=== PATIENT | male | born 1980 | race American Indian/Alaskan Native ===

== ENCOUNTER 2017-12-25 19:19 | Observation (INO) | payer BC ==
[2017-12-25] MEDS ORDERED: Sodium Chloride 0.9% 1,000 ML IV STA ×2 (20:01→20:14)
--- NOTE | 2017-12-25 20:04 | ED PDOC ---
HPI: General Adult Time Seen by Provider: 12/25/17 19:41 Chief Complaint (Nursing): GI Problem Chief Complaint (Provider): GI Problem History Per: Patient History/Exam Limitations: no limitations Onset/Duration Of Symptoms: Days Current Symptoms Are (Timing): Still Present Additional Complaint(s): 37 year old male presents to the emergency department with a complaint of diarrhea x1 week. Associated with fever, chills, nausea, abdominal pain, weakness, malaise and vomiting x1 day. Reports vomiting and diarrhea episodes were non bloody. States he returned from [place] 1 week ago and had diarrhea since and uses the bathroom every 30 minutes for the last 2-3 days. Patient saw market risk specialist who started him on proton-pump inhibitor (PPI) and Imodium without any improvement. Denies blood in vomit or diarrhea episodes or any further medical complaints. Past Medical History Reviewed: Historical Data, Nursing Documentation, Vital Signs Vital Signs: Last Vital Signs Temp 99.3 F 12/25/17 22:54 Pulse 93 H 12/25/17 22:54 Resp 16 12/25/17 22:54 BP 101/49 L 12/25/17 22:54 Pulse Ox 97 12/26/17 00:06 - Medical History PMH: No Chronic Diseases - Surgical History Surgical History: No Surg Hx - Family History Family History: States: Unknown Family Hx - Social History Current smoker - smoking cessation education provided: No Alcohol: None Drugs: Denies - Allergies Allergies/Adverse Reactions: Allergies Allergy/AdvReac Type Severity Reaction Status Date / Time hops Allergy RASH Verified 12/25/17 19:31 lactose Allergy DIARRHEA Verified 12/25/17 19:31 orange Allergy RASH Verified 12/25/17 19:31 wheat Allergy RASH Verified 12/25/17 19:31 Review of Systems ROS Statement: Except As Marked, All Systems Reviewed And Found Negative (As per HPI, otherwise negative) Constitutional: Positive for: Fever, Chills, Weakness, Malaise Gastrointestinal: Positive for: Nausea, Vomiting, Abdominal Pain, Diarrhea. Negative for: Hematochezia, Hematemesis Physical Exam - Reviewed Nursing Documentation Reviewed: Yes Vital Signs Reviewed: Yes - Physical Exam Appears: Positive for: Uncomfortable (febrile) Head Exam: Positive for: NORMAL INSPECTION Skin: Positive for: Normal Color, Warm, Dry Cardiovascular/Chest: Positive for: Tachycardia (regular rhythm). Negative for : Murmur Respiratory: Positive for: Normal Breath Sounds. Negative for: Wheezing, Respiratory Distress Gastrointestinal/Abdominal: Positive for: Soft, Tenderness (Diffuse). Negative for: Normal Exam Extremity: Positive for: Normal ROM. Negative for: Pedal Edema Neurologic/Psych: Positive for: Alert, Oriented (x3) - Laboratory Results Result Diagrams: 12/25/17 21:03 12/25/17 21:03 - ECG O2 Sat by Pulse Oximetry: 97 (RA) Pulse Ox Interpretation: Normal Medical Decision Making Medical Decision Making: Time: 1999 Initial impression: Acute diarrheal illness, fever, and chills in setting of overseas travel Initial plan: EKG CMP Lact Acid, Plasma Urine DIP CBC w. diff Tylenol 975 mg PO Sodium Chloride 1L IV Blood and Stool Culture Ova and Parasite Fecal Leukocytes Influenza A B Bentyl 20 mg PO Abd & Pelvis IV Contrast CT Reevaluation Time: 2114 --Occult Blood, stool Time: 23:42 CT ABDOMEN AND PELVIS FINDINGS: Lung bases: There is minimal bibasilar atelectasis. ABDOMEN: Liver: Unremarkable. No mass. Gallbladder and bile ducts: Unremarkable. No calcified stones. No ductal dilation. Pancreas: Unremarkable. No mass. No ductal dilation. Spleen: Unremarkable. No splenomegaly. Adrenals: Unremarkable. No mass. Kidneys and ureters: Unremarkable. No solid mass. No hydronephrosis. Stomach and bowel: No obstruction. The colon is diffusely thickwalled most prominent from the splenic flexure to the rectum consistent with acute colitis. PELVIS: Appendix: No findings to suggest acute appendicitis. Normal appendix. Bladder: Unremarkable. No mass. Reproductive: Unremarkable as visualized. ABDOMEN and PELVIS: Intraperitoneal space: Unremarkable. No free air. No significant fluid collection. Bones/joints: No acute fracture. No dislocation. Soft tissues: Unremarkable. Vasculature: Unremarkable. No abdominal aortic aneurysm. Lymph nodes: Unremarkable. No enlarged lymph nodes. IMPRESSION: Acute colitis. Time: 23:57 --Cipro 400ml/200ml DSW IV --Flagyl 500mg/100ml NS IVPB --2x KCl IV run Arrangements made with Dr. Wakefield for admission for acute colitis, hyperkalemia, and dehydration. Scribe Attestation: Documented by Joan Allison and Dereck Robles, acting as scribes for Carlitos Solorzano MD. Provider Scribe Attestation: All medical record entries made by the Scribe were at my direction and personally dictated by me. I have reviewed the chart and agree that the record accurately reflects my personal performance of the history, physical exam, medical decision making, and the department course for this patient. I have also personally directed, reviewed, and agree with the discharge instructions and disposition. Disposition - Clinical Impression Clinical Impression: Acute colitis, Hyperkalemia, Dehydration - Patient ED Disposition Is Patient to be Admitted: Yes - Disposition Disposition Time: 00:01 Condition: FAIR Forms: [place] (Yoruba) - Pt Status Changed To: Hospital Disposition Of: Inpatient - Admit Certification Admit to Inpatient:: After my assessment, the patient will require hospitalization for at least two midnights. This is because of the severity of symptoms shown, intensity of services needed, and/or the medical risk in this patient being treated as an outpatient.
[2017-12-25 21:31] LABS: ALB/GLOB RATIO 1.2 (1.0-2.1); ALBUMIN 3.8 g/dL (3.5-5.0); ALT/SGPT 38 U/L (21-72); AST/SGOT 32 U/L (17-59); BLOOD UREA NITROGEN 12 mg/dl (9-20); CALCIUM 8.9 mg/dL (8.4-10.2); GFR AFRICAN-AMERICAN > 60; GFR NON-AFRICAN AMERICAN > 60
[2017-12-25 21:40] LABS: BASO % 0.2 % (0.0-2.0); HEMOGLOBIN 14.1 g/dL (12.0-18.0); LYMPH % 9.3 % (20.0-40.0); MEAN CELL VOLUME 80.8 fl (80.0-94.0); MEAN CORPUSCULAR HEMOGLOBIN 29.7 pg (27.0-31.0); MEAN CORPUSCULAR HGB CONC 36.8 g/dL (33.0-37.0); MEAN PLATELET VOLUME 7.5 fl (7.2-11.7); MONO % 19.7 % (0.0-10.0); NEUT # 7.2 K/uL (1.8-7.0); NEUT % 70.8 % (50.0-75.0); NRBC % 0.1 % (0.0-0.0); PLATELET COUNT 282 K/uL (130-400); RBC 4.75 Mil/uL (4.40-5.90); RED CELL DISTRIBUTION WIDTH 13.6 % (11.5-14.5); WHITE BLOOD COUNT 10.2 K/uL (4.8-10.8)
[2017-12-25] MEDS ORDERED: Sodium Chloride 0.9% 50 ML IV ONE ×2 (22:10→22:23)
[2017-12-25] MEDS ORDERED: Iohexol 300 100 ML IJ ONE ×2 (22:10→22:23)
--- NOTE | 2017-12-25 23:43 | CT ---
EXAM: CT Abdomen and Pelvis With Intravenous Contrast CLINICAL HISTORY: 37 years old, male; Pain; Abdominal pain; Generalized; Additional info: Colitis TECHNIQUE: Axial computed tomography images of the abdomen and pelvis with intravenous contrast. All CT scans at this facility use one or more dose reduction techniques, viz.: automated exposure control; ma/kV adjustment per patient size (including targeted exams where dose is matched to indication; i.e. head); or iterative reconstruction technique. Coronal and sagittal reformatted images were created and reviewed. CONTRAST: 95 mL of [id number] administered intravenously. COMPARISON: No relevant prior studies available. FINDINGS: Lung bases: There is minimal bibasilar atelectasis. ABDOMEN: Liver: Unremarkable. No mass. Gallbladder and bile ducts: Unremarkable. No calcified stones. No ductal dilation. Pancreas: Unremarkable. No mass. No ductal dilation. Spleen: Unremarkable. No splenomegaly. Adrenals: Unremarkable. No mass. Kidneys and ureters: Unremarkable. No solid mass. No hydronephrosis. Stomach and bowel: No obstruction. The colon is diffusely thickwalled most prominent from the splenic flexure to the rectum consistent with acute colitis. PELVIS: Appendix: No findings to suggest acute appendicitis. Normal appendix. Bladder: Unremarkable. No mass. Reproductive: Unremarkable as visualized. ABDOMEN and PELVIS: Intraperitoneal space: Unremarkable. No free air. No significant fluid collection. Bones/joints: No acute fracture. No dislocation. Soft tissues: Unremarkable. Vasculature: Unremarkable. No abdominal aortic aneurysm. Lymph nodes: Unremarkable. No enlarged lymph nodes. IMPRESSION: Acute colitis.
[2017-12-25] MEDS ORDERED: Ciprofloxacin 400mg/200ml D5W 400 MG/200 ML BAG IV STA (23:57)
[2017-12-25] MEDS ORDERED: metroNIDAZOLE 500mg/100ml NS 100 ML IVPB STA (23:57)
[2017-12-26] MEDS ORDERED: metroNIDAZOLE 500mg/100ml NS 100 ML IVPB ONE (00:07)
[2017-12-26] MEDS ORDERED: Ciprofloxacin 400mg/200ml D5W 400 MG/200 ML BAG IVPB ONE (00:07)
--- NOTE | 2017-12-26 00:26 | CP.PCM.HP ---
History of Present Illness - History of Present Illness History of Present Illness: PMD: Fazal kent DO Chief Complaint: Diarrhea/ Fever The Patient was seen and examined in the ED HPI: This is a 37 years old male with hx of Lactose intolerance and GERD, who returned one week ago from a one week vacation in [place]. He comes referring Diarrhea since returning from the vacation. More than 10 non- bloody bowel movements daily. This is associated with generalized abdominal pain, fever, chills, nausea, vomits and weakness. He visited his Mechanical Engineering Advisor who started him on PPI and Imodium without improvement. 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 FH: States: Unknown Family Hx Allergies: NKDA Hops; Lactose; Oranges; wheat Mediations: Reviewed Present on Admission - Present on Admission Any Indicators Present on Admission: No History of DVT/PE: No History of Uncontrolled Diabetes: No Urinary Catheter: No Decubitus Ulcer Present: No Review of Systems - Constitutional Constitutional: Anorexia, Chills, Fatigue, Fever, Headache - EENT Eyes: Requires Corrective Lenses. absent: Floaters, Itchy Eyes, Sees Flashes Ears: absent: Decreased Hearing, Ear Discharge, Ear Pain, Tinnitus Nose/Mouth/Throat: absent: Epistaxis, Nasal Congestion - Cardiovascular Cardiovascular: absent: Chest Pain, Dyspnea, Edema - Respiratory Respiratory: Pain on Inspiration. absent: Cough, Dyspnea, Chest Congestion - Gastrointestinal Gastrointestinal: Abdominal Pain, Diarrhea, Nausea, Vomiting. absent: Constipation - Genitourinary Genitourinary: absent: Flank Pain, Urinary Frequency - Musculoskeletal Musculoskeletal: absent: Arthralgias, Back Pain, Muscle Weakness, Myalgias - Integumentary Integumentary: absent: Pruritus, Rash, Skin Ulcer, Sores, Striae, Swelling - Neurological Neurological: Dizziness, Headaches, Weakness. absent: Confusion, Focal Weakness - Psychiatric Psychiatric: absent: Anxiety, Depression, Panic Attacks - Endocrine Endocrine: absent: Palpitations, Polydipsia, Polyphagia, Polyuria - Hematologic/Lymphatic Hematologic: absent: Easy Bleeding, Easy Bruising Past Patient History - Past Medical History & Family History Past Medical History?: Yes - Past Social History Smoking Status: Never Smoked Chewing Tobacco Use: No Cigar Use: No Alcohol: Occasional Drugs: Denies Home Situation {Lives}: With Family - CARDIAC Hx Cardiac Disorders: No - PULMONARY Hx Respiratory Disorders: No - NEUROLOGICAL Hx Neurological Disorder: No - HEENT Hx HEENT Problems: No - RENAL Hx Chronic Kidney Disease: No - HEMATOLOGICAL/ONCOLOGICAL Hx Blood Disorders: No - INTEGUMENTARY Hx Dermatological Problems: No - MUSCULOSKELETAL/RHEUMATOLOGICAL Hx Musculoskeletal Disorders: No - GASTROINTESTINAL Hx Gastroesophageal Reflux: Yes - GENITOURINARY/GYNECOLOGICAL Hx Genitourinary Disorders: No - PSYCHIATRIC Hx Psychophysiologic Disorder: No - SURGICAL HISTORY Hx Surgeries: No - ANESTHESIA Hx Anesthesia: No Meds Allergies/Adverse Reactions: Allergies Allergy/AdvReac Type Severity Reaction Status Date / Time hops Allergy RASH Verified 12/25/17 19:31 lactose Allergy DIARRHEA Verified 12/25/17 19:31 orange Allergy RASH Verified 12/25/17 19:31 wheat Allergy RASH Verified 12/25/17 19:31 Physical Exam - Constitutional Appears: No Acute Distress - Head Exam Head Exam: ATRAUMATIC, NORMAL INSPECTION, NORMOCEPHALIC - Eye Exam Eye Exam: EOMI, Normal appearance Pupil Exam: NORMAL ACCOMODATION, PERRL - ENT Exam ENT Exam: Mucous Membranes Moist, Normal Exam, Normal External Ear Exam - Neck Exam Neck exam: Positive for: Full Rom, Normal Inspection. Negative for: Lymphadenopathy, Tenderness - Respiratory Exam Respiratory Exam: Clear to Auscultation Bilateral. absent: Rales, Rhonchi, Wheezes - Cardiovascular Exam Cardiovascular Exam: REGULAR RHYTHM, RRR, +S1, +S2. absent: Gallop, JVD - GI/Abdominal Exam Additional comments: Flat, soft, no guarding, mild rebound tenderness, Positive bowel sounds - Rectal Exam Rectal Exam: Deferred - Extremities Exam Extremities exam: Positive for: full ROM, normal inspection. Negative for: calf tenderness, joint swelling, pedal edema, tenderness - Back Exam Back exam: NORMAL INSPECTION. absent: CVA tenderness (L), CVA tenderness (R) - Neurological Exam Neurological exam: Alert, CN II-XII Intact, Oriented x3, Reflexes Normal - Psychiatric Exam Psychiatric exam: Normal Affect, Normal Mood - Skin Skin Exam: Dry, Intact, Normal Color, Warm Results - Vital Signs Recent Vital Signs: Last Vital Signs Temp 99.3 F 12/25/17 22:54 Pulse 93 H 12/25/17 22:54 Resp 16 12/25/17 22:54 BP 101/49 L 12/25/17 22:54 Pulse Ox 97 12/26/17 00:07 - Labs Result Diagrams: 12/25/17 21:03 12/25/17 21:03 Labs: Laboratory Results - last 24 hr 12/25/17 12/25/17 12/25/17 21:03 21:03 21:03 WBC 10.2 RBC 4.75 Hgb 14.1 Hct 38.4 MCV 80.8 MCH 29.7 MCHC 36.8 RDW 13.6 Plt Count 282 MPV 7.5 Neut % (Auto) 70.8 Lymph % (Auto) 9.3 L [place] % (Auto) 19.7 H Eos % (Auto) 0.0 Baso % (Auto) 0.2 Neut # (Auto) 7.2 H Lymph # (Auto) 1.0 [place] # (Auto) 2.0 H Eos # (Auto) 0.0 Baso # (Auto) 0.0 Sodium 138 Potassium 3.1 L Chloride 98 Carbon Dioxide 24 Anion Gap 19 BUN 12 Creatinine 1.3 Est GFR ( Amer) > 60 Est GFR (Non-Af Amer) > 60 Random Glucose 98 Lactic Acid Calcium 8.9 Total Bilirubin 1.8 H AST 32 ALT 38 Alkaline Phosphatase 55 Total Protein 7.1 Albumin 3.8 Globulin 3.3 Albumin/Globulin Ratio 1.2 Influenza Typ A,B (EIA) Negative for flu a/b 12/25/17 21:03 WBC RBC Hgb Hct MCV MCH MCHC RDW Plt Count MPV Neut % (Auto) Lymph % (Auto) [place] % (Auto) Eos % (Auto) Baso % (Auto) Neut # (Auto) Lymph # (Auto) [place] # (Auto) Eos # (Auto) Baso # (Auto) Sodium Potassium Chloride Carbon Dioxide Anion Gap BUN Creatinine Est GFR ( Amer) Est GFR (Non-Af Amer) Random Glucose Lactic Acid 0.9 Calcium Total Bilirubin AST ALT Alkaline Phosphatase Total Protein Albumin Globulin Albumin/Globulin Ratio Influenza Typ A,B (EIA) - EKG Data EKG comments: NSR 98/min - Imaging and Cardiology CT scan - abdomen Status: Report reviewed by me Additional comment: EXAM: CT Abdomen and Pelvis With Intravenous Contrast CLINICAL HISTORY: FINDINGS: Lung bases: There is minimal bibasilar atelectasis. ABDOMEN: Liver: Unremarkable. No mass. Gallbladder and bile ducts: Unremarkable. No calcified stones. No ductal dilation. Pancreas: Unremarkable. No mass. No ductal dilation. Spleen: Unremarkable. No splenomegaly. Adrenals: Unremarkable. No mass. Kidneys and ureters: Unremarkable. No solid mass. No hydronephrosis. Stomach and bowel: No obstruction. The colon is diffusely thickwalled most prominent from the splenic flexure to the rectum consistent with acute colitis. PELVIS: Appendix: No findings to suggest acute appendicitis. Normal appendix. Bladder: Unremarkable. No mass. Reproductive: Unremarkable as visualized. ABDOMEN and PELVIS: Intraperitoneal space: Unremarkable. No free air. No significant fluid collection. Bones/joints: No acute fracture. No dislocation. Soft tissues: Unremarkable. Vasculature: Unremarkable. No abdominal aortic aneurysm. Lymph nodes: Unremarkable. No enlarged lymph nodes. IMPRESSION: Acute colitis. Assessment & Plan - Assessment and Plan (Free Text) Assessment: #. Acute Colitis #. Hypokalemia Plan: 37 years old male with hx of Lactose intolerance and GERD, returned one week ago from vacation in [place]. He comes referring Diarrhea since returning from the vacation. More than 10 non- bloody bowel movements daily, associated with generalized abdominal pain, fever, chills, nausea, vomits and weakness. #. Abdominal Pain due to Acute Colitis - Pain management - Stool for C&S - Stool for C Diff - blood Culture - Flagyl - Ciprofloxacin - IV Fluids #. Hypokalemia - Replace with KCL - Maintenance with KCL in IV fluids #. GERD: - Pantoprazole #. DVT prophylaxis with Lovenox #. Code Status: Full - Date & Time Date: 12/26/17 Time: 00:26
[2017-12-26] MEDS ORDERED: Potassium Chloride 20 mEq 100 ML IVPB SCH (01:00)
[2017-12-26] MEDS ORDERED: Potassium Chloride 20 mEq 100 ML ONE (01:14)
[2017-12-26 01:59] LABS: BANDS 4 % (0-2); LYMPHOCYTE 10 % (20-50); MONOCYTE 19 % (0-10); NEUTROPHIL 63 % (42-75); PLATELET ESTIMATE NORMAL (NORMAL); REACTIVE LYMPHOCYTES 4 % (0-0); TOTAL CELLS COUNTED 100
[2017-12-26 02:00] LABS: SPHEROCYTES SLIGHT
[2017-12-26] MEDS: Potassium Chl 20 mEq in D5-NS 1,000 ML IV SCH ×2 (02:07→20:57)
[2017-12-26 06:36] LABS: BASO % 0.2 % (0.0-2.0); EOS % 0.1 % (0.0-4.0); LYMPH % 17.4 % (20.0-40.0); MEAN CELL VOLUME 81.6 fl (80.0-94.0); MEAN CORPUSCULAR HEMOGLOBIN 29.5 pg (27.0-31.0); MEAN CORPUSCULAR HGB CONC 36.1 g/dL (33.0-37.0); MEAN PLATELET VOLUME 7.5 fl (7.2-11.7); MONO # 2.2 K/uL (0.0-0.8); MONO % 19.8 % (0.0-10.0); NEUT % 62.5 % (50.0-75.0); RBC 4.43 Mil/uL (4.40-5.90); RED CELL DISTRIBUTION WIDTH 13.4 % (11.5-14.5); WHITE BLOOD COUNT 11.2 K/uL (4.8-10.8)
--- NOTE | 2017-12-26 07:54 | CARD ---
APPROVED REPORT EKG Measurement Heart [id number] <Conclusion> Normal sinus rhythm Normal ECG
[2017-12-26 08:21] LABS: BLOOD UREA NITROGEN 9 mg/dl (9-20); GFR AFRICAN-AMERICAN > 60; GFR NON-AFRICAN AMERICAN > 60
[2017-12-26] MEDS: Enoxaparin 40 mg Syringe SC SCH (09:16)
[2017-12-26] MEDS: Pantoprazole 40 mg EC Tab PO SCH (09:17)
[2017-12-26] MEDS: metroNIDAZOLE 500mg/100ml NS 100 ML IVPB SCH ×2 (09:49→17:09)
[2017-12-26] MEDS: Ciprofloxacin 400mg/200ml D5W 400 MG/200 ML BAG IVPB SCH ×2 (09:50→21:53)
[2017-12-26] MEDS ORDERED: Magnesium Sulfate 2 gm/50 ml 2 GM/50 ML BAG IVPB ONE (12:27)
[2017-12-26] MEDS ORDERED: Potassium Chloride 20 mEq ER Tab PO ONE (12:27)
[2017-12-27] MEDS: metroNIDAZOLE 500mg/100ml NS 100 ML IVPB SCH ×2 (01:55→08:32)
[2017-12-27 06:20] LABS: HEMOGLOBIN 12.7 g/dL (12.0-18.0); MEAN CELL VOLUME 82.6 fl (80.0-94.0); MEAN CORPUSCULAR HEMOGLOBIN 29.6 pg (27.0-31.0); MEAN CORPUSCULAR HGB CONC 35.9 g/dL (33.0-37.0); RBC 4.28 Mil/uL (4.40-5.90); RED CELL DISTRIBUTION WIDTH 13.5 % (11.5-14.5); WHITE BLOOD COUNT 10.1 K/uL (4.8-10.8)
[2017-12-27 06:30] LABS: BLOOD UREA NITROGEN 9 mg/dl (9-20); GFR AFRICAN-AMERICAN > 60; GFR NON-AFRICAN AMERICAN > 60
[2017-12-27] MEDS: Ciprofloxacin 400mg/200ml D5W 400 MG/200 ML BAG IVPB SCH (08:32)
[2017-12-27] MEDS: Pantoprazole 40 mg EC Tab PO SCH (08:33)
[2017-12-27] MEDS: Enoxaparin 40 mg Syringe SC SCH (08:33)
--- NOTE | 2017-12-27 11:39 | CP.PCM.DIS ---
Provider - Provider Date of Admission: 12/26/17 00:02 Attending physician: Dandy Wakefield Primary care physician: Dr. Uri Wisdom Time Spent in preparation of Discharge (in minutes): 15 Hospital Course - Lab Results Lab Results: Micro Results 12/25/17 21:15 Blood Blood Culture - Preliminary NO GROWTH AFTER 24 HOURS 12/25/17 21:00 Blood Blood Culture - Preliminary NO GROWTH AFTER 24 HOURS Most Recent Lab Values WBC 10.1 K/uL (4.8-10.8) 12/27/17 05:35 RBC 4.28 Mil/uL (4.40-5.90) L 12/27/17 05:35 Hgb 12.7 g/dL (12.0-18.0) 12/27/17 05:35 Hct 35.4 % (35.0-51.0) 12/27/17 05:35 MCV 82.6 fl (80.0-94.0) 12/27/17 05:35 MCH 29.6 pg (27.0-31.0) 12/27/17 05:35 MCHC 35.9 g/dL (33.0-37.0) 12/27/17 05:35 RDW 13.5 % (11.5-14.5) 12/27/17 05:35 Plt Count 260 K/uL (130-400) 12/27/17 05:35 MPV 7.5 fl (7.2-11.7) 12/26/17 06:15 Neut % (Auto) 62.5 % (50.0-75.0) 12/26/17 06:15 Lymph % (Auto) 17.4 % (20.0-40.0) L 12/26/17 06:15 [place] % (Auto) 19.8 % (0.0-10.0) H 12/26/17 06:15 Eos % (Auto) 0.1 % (0.0-4.0) 12/26/17 06:15 Baso % (Auto) 0.2 % (0.0-2.0) 12/26/17 06:15 Neut # (Auto) 7.0 K/uL (1.8-7.0) 12/26/17 06:15 Lymph # (Auto) 2.0 K/uL (1.0-4.3) 12/26/17 06:15 [place] # (Auto) 2.2 K/uL (0.0-0.8) H 12/26/17 06:15 Eos # (Auto) 0.0 K/uL (0.0-0.7) 12/26/17 06:15 Baso # (Auto) 0.0 K/uL (0.0-0.2) 12/26/17 06:15 Neutrophils % (Manual) 63 % (42-75) 12/25/17 21:03 Band Neutrophils % 4 % (0-2) H 12/25/17 21:03 Lymphocytes % (Manual) 10 % (20-50) L 12/25/17 21:03 Reactive Lymphs % 4 % (0-0) H 12/25/17 21:03 Monocytes % (Manual) 19 % (0-10) H 12/25/17 21:03 Platelet Estimate Normal (NORMAL) 12/25/17 21:03 Spherocytes Slight 12/25/17 21:03 Sodium 142 mmol/l (132-148) 12/27/17 05:35 Potassium 3.5 MMOL/L (3.6-5.0) L 12/27/17 05:35 Chloride 105 mmol/L (98-107) 12/27/17 05:35 Carbon Dioxide 26 mmol/L (22-30) 12/27/17 05:35 Anion Gap 15 (10-20) 12/27/17 05:35 BUN 9 mg/dl (9-20) 12/27/17 05:35 Creatinine 1.0 mg/dl (0.8-1.5) 12/27/17 05:35 Est GFR ( Amer) > 60 12/27/17 05:35 Est GFR (Non-Af Amer) > 60 12/27/17 05:35 Random Glucose 105 mg/dL (75-110) 12/27/17 05:35 Lactic Acid 0.9 MMOL/L (0.7-2.1) 12/25/17 21:03 Calcium 8.0 mg/dL (8.4-10.2) L 12/27/17 05:35 Magnesium 2.0 MG/DL (1.6-2.3) 12/27/17 05:35 Total Bilirubin 1.8 mg/dl (0.2-1.3) H 12/25/17 21:03 AST 32 U/L (17-59) 12/25/17 21:03 ALT 38 U/L (21-72) 12/25/17 21:03 Alkaline Phosphatase 55 U/L (38-126) 12/25/17 21:03 Total Protein 7.1 G/DL (6.3-8.2) 12/25/17 21:03 Albumin 3.8 g/dL (3.5-5.0) 12/25/17 21:03 Globulin 3.3 gm/dL (2.2-3.9) 12/25/17 21:03 Albumin/Globulin Ratio 1.2 (1.0-2.1) 12/25/17 21:03 Stool Occult Blood Positive (NEGATIVE) H 12/25/17 21:15 Stool Leukocytes, Qual Positive (NEGATIVE) H 12/25/17 21:15 C. difficile Ag & Toxin Negative (NEGATIVE) 12/26/17 01:32 Influenza Typ A,B (EIA) Negative for flu a/b (NEGATIVE) 12/25/17 21:03 - Hospital Course Hospital Course: 37 years old male with hx of Lactose intolerance and GERD, returned one week ago from vacation in [place]. He has been having Diarrhea since returning from the vacation. More than 10 non- bloody bowel movements daily, associated with generalized abdominal pain, fever, chills, nausea, vomits and weakness. In ER he was found to have fever [address] abdomen showed Axcute colitis He was placed on observation in med/surg started on Cipro and Flagyl Iv and stool sent for occult blood , WBC , ova and parasites Stool reported positive for occult blood and WBC. Most likel;y he had infectious diarrhea of unclear etiology Patient clinically improved with hydration and Cipro and Flagyl IV and today his diarrhea has resolved , afebrile for > 12 hours , tolerating diet well with good appetite , hemodynamically stable Will discharge patient hopme on PO cipro and Flafyl for 7 days Follow upw ith His PMD in 1 week Counselled on good hand hygiene and avoiding eating uncooked or not well washes produce or not well preserved D/c patient home All test results and plan of care explained top patient and agrees with plan 1.Acute Colitis most likley infectious of unclear etiology Stool positive for sWBC and occult blood will d/c on Cipro and Flagyl Po for 7 days 2. Hypokalemia most likely due to diarrhea and GI loss Replaced with KCL 3. GERD Pantoprazole Discharge Exam - Head Exam Head Exam: ATRAUMATIC, NORMAL INSPECTION, NORMOCEPHALIC - Eye Exam Eye Exam: EOMI, Normal appearance - ENT Exam ENT Exam: Mucous Membranes Moist, Normal Exam - Neck Exam Neck exam: Full Rom, Normal Inspection - Respiratory Exam Respiratory Exam: Clear to PA & Lateral, NORMAL BREATHING PATTERN. absent: Rales, Rhonchi, Wheezes - Cardiovascular Exam Cardiovascular Exam: REGULAR RHYTHM, RRR, +S1, +S2. absent: JVD - GI/Abdominal Exam GI & Abdominal Exam: Normal Bowel Sounds, Soft. absent: Distended, Guarding, Rebound, Tenderness - Rectal Exam Rectal Exam: Deferred - Extremities Exam Extremities exam: normal capillary refill, normal inspection, pedal pulses present - Back Exam Back exam: NORMAL INSPECTION - Neurological Exam Neurological exam: Alert, CN II-XII Intact, Oriented x3, Reflexes Normal - Psychiatric Exam Psychiatric exam: Normal Affect, Normal Mood - Skin Skin Exam: Dry, Intact, Normal Color, Warm Discharge Plan - Discharge Medications Prescriptions: Ciprofloxacin [Cipro] 500 mg PO BID #14 tab Metronidazole [Flagyl] 500 mg PO TID #21 tab - Follow Up Plan Condition: STABLE Disposition: HOME/ ROUTINE Patient education suggested?: Yes Instructions: Diarrhea and Traveler's Diarrhea, Adult (DC)
[2017-12-27 16:00] VITALS: BP 110/71; PULSE 68; RESP 20; TEMP 98.6; O2SAT 100
== END 2017-12-27 16:30 | disposition home or self-care (01) ==
LOC: H.ER 19:19 → H.ERHOLD 12-26 00:02 → INTOOBSV 12-26 00:02 → H.MEDSURG1 12-26 01:25
PROVIDERS: ADMIT Internal Medicine; ATTEND Internal Medicine
DX: A09 Infectious gastroenteritis and colitis, unspecified (principal); E86.0 Dehydration; E73.9 Lactose intolerance, unspecified; E87.6 Hypokalemia; K21.9 Gastro-esophageal reflux disease without esophagitis
CPT/HCPCS: 36415; 74177; 80048; 80053; 83605; 83735; 85025; 85027; 87040; 87045; 87177; 87209; 87230; 87804; 89055; 93005; 96361; 96365; 96366; 96367; 96372; 96375; 99285; G0328; G0378; J0744; J1650; J3480; J7040; Q9967